=== PATIENT | female | born 1975 | race Hispanic/Latino ===

== ENCOUNTER → 2019-10-26 | Day surgery (SDC) | payer BC, OTHER ==
[2019-10-23 14:50] LABS: BASOPHILS % 0.5 % (0.0-1.0); EOSINOPHILS # (AUTO) 0.3 (0.0-0.4); EOSINOPHILS % 4.5 % (0.0-6.0); HEMATOCRIT 40.8 % (34.2-44.1); HEMOGLOBIN 13.9 g/dL (12.0-16.0); LYMPHOCYTES # (AUTO) 2.8 (1.0-3.2); LYMPHOCYTES % 47.1 % (18.0-39.1); MEAN CORPUSCULAR HGB CONC 34.1 g/dL (31-35); MEAN CORPUSCULAR VOLUME 87.9 fL (81-99); MONOCYTES # (AUTO) 0.5 (0.2-0.8); MONOCYTES % 7.9 % (4.4-11.3); NEUTROPHILS # (AUTO) 2.4 (2.1-6.9); NEUTROPHILS % 39.8 % (38.7-80.0); PLATELET COUNT 211 x10e3/uL (140-360); RED BLOOD COUNT 4.64 x10e6/uL (3.6-5.1); RED CELL DISTRIBUTION WIDTH 11.9 % (11.7-14.4)
[~2019-10-26] MED LIST: BUPIVACAINE HCL 0.5% INJ 30 ML VIAL INJ ONE; CEFAZOLIN SOD 1 GM/NS 50ML 100 ML IV ONE; DEXAMETHASONE SOD PHOS INJ 4 MG/ML VIAL ONE; FENTANYL CITRATE/PF 100MCG/2 ML INJ ONE; KETOROLAC TROMETHAMINE 30 MG/ML VIAL ONE; LIDOCAINE HCL 2% LOCAL INJ 5 ML SDV VIAL INJ ONE; METOCLOPRAMIDE HCL 10 MG/2ML VIAL ONE; MIDAZOLAM HCL 2 MG/2 ML VIAL ONE; ONDANSETRON HCL INJ 2MG/ML 2ML 2 MG/ML VIAL ONE; PROMETHAZINE HCL (IM) 25 MG/ML VIAL IM ONE; PROPOFOL IV EMULSION 10 MG/ML 20 ML VIAL ONE; SCOPOLAMINE 1.5 MG PATCH ONE; SEVOFLURANE INHAL SOLN 250 ML PEN BTL ONE
[2019-10-26 09:50] VITALS: BP 135/88
--- NOTE | 2019-10-26 13:38 | Operative Report ---
DATE OF PROCEDURE: 10/26/2019 SURGEON: VY KATHLEEN MD PLACE OF SURGERY: [facility]. HISTORY: Ms. Pastor is a 44-year-old female with ongoing complaints of ankle pain and instability following ankle sprain for which she had a grade 2 injury to the ATFL and a grade 1 injury to the CFL ligaments of the left ankle. The patient has tried conservative treatment consisting of immobilization, fracture boot, and therapy. The patient continued to have ongoing pain and discomfort, and ongoing intermittent weakness and instability. She elected to proceed along with a left ankle ligamentous repair and reconstruction. The risks and benefits of surgery outlined to the patient consisting, but not limited to the following: Infection, blood loss, nerve, blood vessel, tendon injury, DVT, ongoing pain, and stiffness. She is aware of the importance of postop rehab following her surgery. The patient was seen and identified in the preoperative holding area with her daughter present. The left ankle was marked by myself. I did palpate the area where she was having the majority of the pain, which was mainly along the ATFL insertion of her fibula. She has some mild pain over the CFL insertion as well. The patient was then brought back to the operative suite. Time-out was taken for Ms. Sabi Pastor for a left ankle ligamentous repair and reconstruction of the left ankle. All were in agreement including nursing staff, Anesthesia, and myself. The patient was then given a successful general intubation anesthetic. Nonsterile tourniquet was placed high in the left upper thigh and the left lower extremity was then sterilely prepped and draped in the usual standard fashion. Prior to the incision being made, we had an arthroscopic examination of ankle and anesthesia, and the patient did indeed have some anterior laxity with anterior translation noted. This was confirmed under live C-arm fluoroscopy as well. I went ahead and proceed on with making a curvilinear incision, splitting difference between the ATFL and CFL insertion curving down to the distal talus insertion. Blunt dissection was carried down. Superficial vascular structures were identified and retracted, and protected the entire procedure. A blunt dissection was carried down at which point, I did identify the near complete rupture of her ATFL at the fibular attachment. There was a partial tear of the CFL attachment as well. The cortical bone of the fibular insertion was decorticated. Upon which time, I used a series of Arthrex tack anchors were deployed. The sutures attached to the tack anchors were passed through both the ATFL and CFL ligaments for later reapproximation. I went ahead and drilled my engine pilot hole for the SwiveLock anchor for the fibular attachment for the ATFL. Attention was then turned to the talus. Blunt dissection down to the talus and retractors placed in. We went ahead and used a guidewire and under live C-arm fluoroscopy, the appropriate guidewire was directed in the appropriate position and was confirmed both AP, lateral, and oblique views. The initial drill was used and the engine pilot hole was tapped. Upon which time, the Arthrex InternalBrace anchor for the talus was then tightened in with the head buried. The head was buried, flushed and this was confirmed with direct visualization and palpation. Upon which time, I went ahead and passed the SutureTape for the InternalBrace through a second SwiveLock anchor and the engine pilot hole for the fibular attachment of the ATFL was cleared and the second SwiveLock anchor was used, maintaining the ankle in neutral dorsiflexion. Using assistance the InternalBrace was then tightened down to the appropriate tension as marked off and I went ahead and confirmed the tension by placing a small underneath the InternalBrace while tensioning down the second SwiveLock anchor. Upon intraoperative stability testing, there was marked and significant improvement with regard to the anterior translation of the tibiotalar joint. This was confirmed with anterior sensation as well as with the foot in the plantar flexion, inversion and neutral and inversion. We went ahead and turned my attention back to the CFL ligaments. The Arthrex tack anchors were used and I was able to reattach the ligament back down and tied back down to its bony insertion. Again, final stability testing shows excellent repair and reconstruction of the ATFL and CFL ligaments with significant improved stability of the ankle joint. Next, copious irrigation was carried out on entire wound. The incision was then closed using a 4-0 Vicryl and a plastic closure using a 4-0 Monocryl, and Mastisol and Steri-Strips were applied. The patient was placed in Xeroform compressive dressing with multiple layers of Webril and then Kerlix and then a short-leg splint was applied. Tourniquet was released prior to full dressing placement. There was no acute pulsatile bleeding noted. Capillary refill was brisk. Pulses are intact +2/4. The patient was then successfully extubated and transferred to PACU in stable condition. 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 POSTOPERATIVE DIAGNOSES: 1. Rupture of the left ATFL ligaments. 2. Partial rupture of the left ankle CFL ligaments. PROCEDURES: 1. Repair of the left ankle anterior tibiofibular ligament. 2. Repair of the left ankle calcaneofibular ligament. 3. Placement of a short-leg splint of the left lower extremity. ANESTHESIA: General. ESTIMATED BLOOD LOSS: Less than 5 to 10 mL. SPECIMENS: None. COMPLICATIONS: None. CONDITION: Stable to PACU. The patient was seen in PACU. Dressings were clean and dry. Pain is well controlled. The intraoperative findings reviewed and discussed with the patient's daughter. Discharge wound care instructions were given. The patient is to be nonweightbearing until postoperative follow up in clinic in 2 weeks. At that time, we will transition to a fracture boot and begin partial weightbearing and outpatient physical therapy. The patient is to continue with aggressive icing, elevation with activity modification. Discharge instructions also discussed with nursing staff. MD ALEXX ROTH/MARKL /[id number]
== END | disposition home or self-care (01) ==
LOC: OR 05:23
PROVIDERS: ATTEND Orthopaedic Surgery
DX: S93.492A Sprain of other ligament of left ankle, initial encounter (principal); S93.412A Sprain of calcaneofibular ligament of left ankle, initial encounter; S86.392A Other injury of muscle(s) and tendon(s) of peroneal muscle group at lower leg level, left leg, initial encounter; X58.XXXA Exposure to other specified factors, initial encounter; Z01.812 Encounter for preprocedural laboratory examination; Z11.59 Encounter for screening for other viral diseases; Z68.31 Body mass index [BMI] 31.0-31.9, adult
CPT/HCPCS: 27696; 36415; 76000; 85025; C1713; J0690; J1100; J1885; J2001; J2250; J2405; J2550; J2704; J2765; J3010; U0002